=== PATIENT | male | born 1940 | race Caucasian/White ===

== ENCOUNTER → 2016-12-06 | Outpatient (CLI) | payer OTHER, MEDICARE ==
--- NOTE | 2016-12-06 11:39 | DI ---
History: Evaluate total knee arthroplasty. Procedure: Three-view study. Prior examination: 05/11/16 Findings: The prosthetic components appear properly positioned. The patella is in close proximity to the lateral prosthetic components in the medial but is otherwise unremarkable. No plain film evidence of prosthetic loosening observed. Impression: Satisfactory appearance of left total hemiarthroplasty. No significant findings otherwise
== END ==
LOC: ORTHO 10:06
PROVIDERS: ATTEND Orthopaedic Surgery
DX: Z47.1 Aftercare following joint replacement surgery (principal); Z96.652 Presence of left artificial knee joint
CPT/HCPCS: 73562

== ENCOUNTER → 2016-12-06 | Outpatient (CLI) | payer OTHER, MEDICARE ==
[2016-12-06 11:41] LABS: HEMOGLOBIN 14.5 g/dL (14.0-18.0); MEAN CORPUSCULAR HEMOGLOBIN 33.2 PG (27-31); MEAN CORPUSCULAR HGB CONC 35.4 g/dL (33-37); MEAN PLATELET VOLUME 9.6 FL (7.4-12.2); RDW COEFFICIENT OF VARIATION 14.2 % (11.5-14.5); RED BLOOD COUNT 4.37 10^6/uL (4.70-6.10); WHITE BLOOD COUNT 5.26 10^3/uL (4.8-10.8)
[2016-12-06 12:13] LABS: BILIRUBIN,TOTAL 1.3 mg/dL (0.3-1.2); TOTAL PROTEIN 7.5 g/dL (6.1-8.0)
== END ==
LOC: LAB 10:39
PROVIDERS: ATTEND Nurse Practitioner
DX: K50.90 Crohn's disease, unspecified, without complications (principal); Z79.899 Other long term (current) drug therapy
CPT/HCPCS: 36415; 73562; 80076; 85027

== ENCOUNTER → 2017-01-02 | Outpatient (CLI) | payer OTHER, MEDICARE | LOC: MMPC 11:11 | PROVIDERS: ATTEND Internal Medicine | DX: K50.90 Crohn's disease, unspecified, without complications (principal); M17.11 Unilateral primary osteoarthritis, right knee; Z96.651 Presence of right artificial knee joint | CPT/HCPCS: 99214; G0463 ==

== ENCOUNTER → 2017-03-25 | Outpatient (CLI) | payer OTHER, MEDICARE ==
[2017-03-25 14:23] LABS: HEMATOCRIT 39.9 % (42.0-52.0); HEMOGLOBIN 13.9 g/dL (14.0-18.0); MEAN CORPUSCULAR HEMOGLOBIN 32.3 PG (27-31); MEAN CORPUSCULAR HGB CONC 34.8 g/dL (33-37); MEAN CORPUSCULAR VOLUME 92.8 FL (80-90); MEAN PLATELET VOLUME 9.5 FL (7.4-12.2); RED BLOOD COUNT 4.3 10^6/uL (4.70-6.10)
[2017-03-25 16:43] LABS: SERUM ALBUMIN 4.3 g/dL (3.5-4.8)
== END ==
LOC: LAB 14:07
PROVIDERS: ATTEND Internal Medicine Gastroenterology
DX: K50.90 Crohn's disease, unspecified, without complications (principal); Z79.899 Other long term (current) drug therapy
CPT/HCPCS: 36415; 80076; 85027

== ENCOUNTER → 2017-06-28 | Outpatient (CLI) | payer OTHER, MEDICARE ==
[2017-06-28 12:04] LABS: HEMATOCRIT 38.3 % (42.0-52.0); HEMOGLOBIN 13.8 g/dL (14.0-18.0); MEAN CORPUSCULAR HEMOGLOBIN 33.5 PG (27-31); MEAN PLATELET VOLUME 9.5 FL (7.4-12.2); RED BLOOD COUNT 4.12 10^6/uL (4.70-6.10)
== END ==
LOC: LAB 11:48
PROVIDERS: ATTEND Internal Medicine Gastroenterology
DX: K50.90 Crohn's disease, unspecified, without complications (principal); Z79.891 Long term (current) use of opiate analgesic
CPT/HCPCS: 36415; 80076; 82542; 85027

== ENCOUNTER → 2017-07-18 | Outpatient (CLI) | payer OTHER, MEDICARE ==
--- NOTE | 2017-07-18 12:49 | DI ---
RIGHT KNEE, 07/18/2017 11:40 AM: Clinical History: Right knee pain. Previous Exam: 04/15/2015. 4 views are submitted. The AP and tunnel projections are weight bearing views. There is a small joint effusion. A bony density is present superior to the patella on the lateral projection and this was p resent on the prior exam. It may be calcification or ossification in the quadriceps tendon. There is severe joint space narrowing of the medial compartment with development of sclerosis. There is a mild genu varus deformity. 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 A small joint effusion is present, and there is a mild genu varus deformity.
== END ==
LOC: ORTHO 11:54
PROVIDERS: ATTEND Orthopaedic Surgery
DX: M25.561 Pain in right knee (principal); M17.11 Unilateral primary osteoarthritis, right knee
CPT/HCPCS: 73564